=== PATIENT | male | born 1960 | race Caucasian/White ===

== ENCOUNTER 2017-11-27 10:26 | Day surgery (SDC) | payer BC ==
[2017-11-27] MEDS ORDERED: PROPOFOL 10 MG/ML VIAL IV ONE (10:27)
[2017-11-27] MEDS ORDERED: LIDOCAINE 2% MDV (20MG/ML) 20ML VIAL IV ONE (10:27)
--- NOTE | 2017-11-28 12:31 | Operative Note ---
DATE OF SURGERY: 11/27/2017 OPERATION: COLONOSCOPY to the cecum with cold biopsy forceps polypectomy x1. INDICATION: Strong family history of colon cancer in multiple second-degree relatives. He presents at this time for screening after 6 years from his last examination. ANESTHESIA: Intravenous sedation was administered by the department of anesthesiology and included Diprivan titrated to effect. PROCEDURE: Following informed consent from this alert individual including a discussion of the risks and benefits of the procedure and an opportunity for the patient to ask questions, the patient was in the left lateral decubitus position. A digital rectal examination was performed. No abnormalities were noted. Following this, the Olympus EXL008 video colonoscope was inserted into the rectum without resistance. The rectal mucosa had a normal appearance with normal folds and distensibility. The colonoscope was advanced up through the bowel to the level of the cecum without much difficulty. Throughout the bowel the mucosa appeared normal, the folds were normal, and the bowel was fairly well distensible. The cecum was well defined by noting the appendiceal orifice and ileocecal valve. The terminal ileum was cannulated and found to be normal as well. The colon preparation was good. From the base of the cecum, the colonoscope was then slowly withdrawn. In the distal descending colon there was a diminutive 3 mm polyp noted on the edge of a fold which was removed with cold biopsy forceps. No other changes were appreciated until the rectum was reached. Retroflexion in the rectum revealed small internal hemorrhoids. Again, the remainder of the colon was endoscopically normal with a good preparation. The endoscope was straightened and withdrawn. The patient tolerated the procedure well and was returned to the recovery area in stable condition. IMPRESSION: 1. Diminutive 3 mm polyp removed from the descending colon with cold biopsy forceps. 2. Small internal hemorrhoids. RECOMMENDATIONS: The patient was advised he should receive a copy of his pathology report at home in the next 2-3 weeks. If not, he was asked to call my office to review the results of testing today. Further recommendations forthcoming pending those results. He most likely will require screening and/or surveillance colonoscopy in 5 years' time. Followup will be with Jeremie Arizmendi DO. As always, thank you for allowing me to participate in the care of your patient. CC: DO SHANTELLE Wynne
== END 2017-11-27 13:16 | disposition home or self-care (01) ==
LOC: HOP 10:26
PROVIDERS: ATTEND Internal Medicine Gastroenterology
DX: Z12.11 Encounter for screening for malignant neoplasm of colon (principal); Z80.0 Family history of malignant neoplasm of digestive organs; D12.4 Benign neoplasm of descending colon; I10 Essential (primary) hypertension; E78.00 Pure hypercholesterolemia, unspecified